=== PATIENT | female | born 1945 | race Caucasian/White ===

== ENCOUNTER → 2016-09-14 | Outpatient (CLI) | payer MEDICARE, OTHER ==
--- NOTE | ~2016-09-14 | MY11 ---
[facility] A Service of [facility] RADIOLOGY TEXT RESULTS PATIENT: LEONCIO SÁNCHEZ LOCATION: [facility] : 47 UNIT #: [id number] AGE: [address]: Mala Avila MD SEX: F ORDER DR: [id number] [address] [address] [id number] O MR#: [id number] Acc #: [id number] NAME: LEONCIO SÁNCHEZ : 1945 SEX: F STUDY DATE/TIME: 09/14/2016 11:28 UNIT: [facility] ROOM: STUDY DESCRIPTION: MY Mammogram Screening Dig Joshua Attending Physician: Mala Avila M.D. Referring Physician: Mala Avila M.D. Ordering Physician: Mala Avila M.D. Primary Care Physician: Mala Avila M.D. MEDICAL IMAGING REPORT This report is preliminary unless electronic signature is present. EXAM Digital screening mammogram 09/14/2016 HISTORY 71-year-old woman, no risk elevation. Annual screen. COMPARISON STUDIES Comparison 08/14/2010, 11/13/2011, 01/13/2013 FINDINGS Digital imaging of each breast was completed utilizing a two-view examination of each breast in craniocaudal and mediolateral-oblique projections. Review and interpretation of digital mammograms include a second review in conjunction with FDA-approved CAD device. There is a normal parenchymal presentation bilaterally consistent with the patient's age. There are no breast masses imaged and no parenchymal asymmetry is visualized. There are no suspicious microcalcifications and I see no focal architectural disturbance. IMPRESSION Negative screening digital mammogram. One-year followup recommended. Patients over the age of 40 are entered into a reminder system with target due date for the next mammogram. A result letter will also be sent to the patient. BIRADS: 1 Negative Dictated by... Kris Robles M.D. THIS IS AN ELECTRONICALLY VERIFIED REPORT [facility] A Service of [facility] RADIOLOGY TEXT RESULTS PATIENT: LEONCIO SÁNCHEZ LOCATION: [facility] : 47 UNIT #: [id number] AGE: [address]: Mala Avila MD SEX: F ORDER DR: Kris Robles M.D. at 09/14/2016 3:06 PM Natalia TD: 09/14/2016 14:53 JOB #: [id number] MEDICAL IMAGING REPORT Page 1 of 1
== END | disposition home or self-care (01) ==
LOC: SMAM 10:35
DX: Z12.31 Encounter for screening mammogram for malignant neoplasm of breast (principal)
CPT/HCPCS: G0202